=== PATIENT | female | born 1995 | race Hispanic/Latino ===

== ENCOUNTER 2017-11-22 19:00 | Emergency (ER) | payer SELFPAY ==
[2017-11-22] MEDS ORDERED: IPRATROPIUM/ALBUTEROL SULFATE 3 ML SOLUTION IH ONE (19:22)
[2017-11-22] MEDS ORDERED: METHYLPREDNISOLONE SOD SUCC 125MG/2ML VIAL ONE (20:01)
== END 2017-11-22 20:28 | disposition home or self-care (01) ==
LOC: EDH 19:00
DX: F32.9 Major depressive disorder, single episode, unspecified (principal); J45.21 Mild intermittent asthma with (acute) exacerbation; Z72.0 Tobacco use; Z79.899 Other long term (current) drug therapy
CPT/HCPCS: 71046; 81025; 94640; 96372; 99285; J2930

== ENCOUNTER 2019-05-14 00:25 | Emergency (ER) | payer SELFPAY ==
[2019-05-14] MEDS ORDERED: IBUPROFEN 600 MG TABLET ONE (00:57)
[2019-05-14] MEDS ORDERED: AMOXICILLIN 500 MG CAPSULE PO ONE (00:57)
== END 2019-05-14 01:03 | disposition home or self-care (01) ==
LOC: EDH 00:25
DX: K03.81 Cracked tooth (principal); F41.9 Anxiety disorder, unspecified; J45.909 Unspecified asthma, uncomplicated; F32.9 Major depressive disorder, single episode, unspecified
CPT/HCPCS: 81025

== ENCOUNTER 2021-07-06 11:10 | Emergency (ER) | payer OTHER ==
[~2021-07-06] VITALS: Ht 172.7 cm; Wt 77.1 kg
[2021-07-06 11:22] VITALS: BP 105/67
[2021-07-06] MEDS ORDERED: KETOROLAC 60 MG VIAL (30MG/ML) IM ONE (12:00)
[2021-07-06] MEDS ORDERED: IBUP-1552 PO (12:16)
== END 2021-07-06 12:43 | disposition home or self-care (01) ==
LOC: EDH 11:10
DX: S93.492A Sprain of other ligament of left ankle, initial encounter (principal); S93.692A Other sprain of left foot, initial encounter; Z79.899 Other long term (current) drug therapy; W03.XXXA Other fall on same level due to collision with another person, initial encounter; Y93.89 Activity, other specified; Y92.89 Other specified places as the place of occurrence of the external cause; Y99.8 Other external cause status
CPT/HCPCS: 73610; 73630; 96372; 99284; J1885

== ENCOUNTER 2022-07-07 14:06 | Inpatient (IN) | payer OTHER ==
[~2022-07-07] VITALS: Ht 172.7 cm; Wt 66.8 kg
[~2022-07-07 14:06] MED LIST: IBUP-1552 PO
[2022-07-07] MEDS ORDERED: FAMOTIDINE 20MG VIAL IV ONE ×2 (14:49→15:00)
[2022-07-07 14:56] LABS: BASOPHILS % (AUTO) 0.3 % (0.0-5.0); EOSINOPHILS % (AUTO) 0.1 % (0.0-8.0); HEMATOCRIT 44.5 % (36-48); LYMPHOCYTES % (AUTO) 11.9 % (21.0-51.0); MEAN CORPUSCULAR HEMOGLOBIN 26.8 pg (27.0-33.0); MEAN CORPUSCULAR HGB CONC 33.3 g/dL (32.0-36.0); MEAN CORPUSCULAR VOLUME 80.6 fL (79-99); MONOCYTES % (AUTO) 3.3 % (3.0-13.0); NEUTROPHILS % (AUTO) 83.8 % (40.0-77.0); PLATELET COUNT (AUTO) 442 K/uL (130-400); RED BLOOD CELL COUNT(AUTO) 5.52 MIL/uL (4.00-5.50); RED CELL DISTRIBUTION WIDTH 14.2 % (11.0-15.5); WHITE BLOOD COUNT (AUTO) 22.1 K/uL (4.8-10.8)
[2022-07-07] MEDS ORDERED: 0.9%NACL 1000ML 1,000 ML IV ONE (15:00)
[2022-07-07] MEDS ORDERED: METOCLOPRAMIDE 10 MG/2 ML VIAL IVP ONE (15:00)
[2022-07-07] MEDS ORDERED: DiphenhydrAMINE HCL 50 MG/ML VIAL IV ONE (15:00)
[2022-07-07 15:10] LABS: CREATININE 0.8 mg/dL (0.5-1.5); POTASSIUM 3.3 mmol/L (3.5-5.1)
[2022-07-07 15:15] LABS: ALBUMIN 4.9 g/dL (3.5-5.0); TOTAL PROTEIN, SERUM 8.9 g/dL (6.0-8.3)
[2022-07-07 15:30] LABS: APPEARANCE,URINE CLOUDY (CLEAR); BILIRUBIN,URINE NEGATIVE (NEGATIVE); COLOR,URINE YELLOW (YELLOW); GLUCOSE, URINE (UA) NEGATIVE (NEGATIVE); KETONES,URINE 150 mg/dL (NEGATIVE); LEUKOCYTE ESTERASE ,URINE 25 Leu/uL (NEGATIVE); NITRATE,URINE NEGATIVE (NEGATIVE); OCCULT BLOOD,URINE NEGATIVE (NEGATIVE); PROTEIN,URINE 100 mg/dL (NEGATIVE)
[2022-07-07 15:40] LABS: BACTERIA,URINE RARE /HPF (None Seen); HYALINE CASTS, URINE 0-1 /LPF (0-1 /LPF); MUCUS,URINE FEW LPF (None Seen); SQUAMOUS EPITHELIAL CELL,UR FEW /HPF (0-2)
[2022-07-07] MEDS ORDERED: HALOPERIDOL INJ 5 MG/ML VIAL IV SCH (16:00)
[2022-07-07] MEDS ORDERED: POTASSIUM BICARB/CIT AC 25 MEQ TABLET.EFF PO ONE (16:30)
[2022-07-07 16:39] LABS: AMPHET/METH SCREEN,URINE NEGATIVE (NEGATIVE); BARBITURATE SCREEN, URINE NEGATIVE (NEGATIVE); BENZODIAZEPINES SCREEN,URINE NEGATIVE (NEGATIVE); CANNABINOID SCREEN,URINE NEGATIVE (NEGATIVE); COCAINE SCREEN,URINE NEGATIVE (NEGATIVE); PHENCYCLIDINE SCREEN,URINE NEGATIVE (NEGATIVE)
[2022-07-07] MEDS ORDERED: MAG/ALUM/SIMETH 30 ML UDCUP PO ONE (17:00)
[2022-07-07] MEDS ORDERED: LIDOCAINE HCL 2% VISCOUS 15 ML UDCUP PO ONE (17:00)
[2022-07-07 18:49] LABS: BASOPHILS % (AUTO) 0.2 % (0.0-5.0); HEMATOCRIT 31.3 % (36-48); MEAN CORPUSCULAR HEMOGLOBIN 26.9 pg (27.0-33.0); MEAN CORPUSCULAR HGB CONC 32.9 g/dL (32.0-36.0); MEAN CORPUSCULAR VOLUME 81.7 fL (79-99); MONOCYTES % (AUTO) 2.5 % (3.0-13.0); NEUTROPHILS % (AUTO) 92.9 % (40.0-77.0); PLATELET COUNT (AUTO) 258 K/uL (130-400); RED BLOOD CELL COUNT(AUTO) 3.83 MIL/uL (4.00-5.50); RED CELL DISTRIBUTION WIDTH 14.2 % (11.0-15.5); WHITE BLOOD COUNT (AUTO) 19.1 K/uL (4.8-10.8)
[2022-07-07] MEDS ORDERED: MORPHINE 4 MG SYG IVP ONE (19:00)
[2022-07-07] MEDS ORDERED: CEFTRIAXONE 1G VIAL IVP ONE (20:00)
[2022-07-07] MEDS ORDERED: DIATR MEGLU/DIATRIZOATE SODIUM 30 ML BOTTLE ONE (20:19)
[2022-07-07] MEDS ORDERED: ACETAMINOPHEN 325 MG TAB PO PRN (21:30)
[2022-07-07] MEDS ORDERED: MORPHINE 2 MG SYG IV PRN (21:30)
[2022-07-07] MEDS ORDERED: LACTATED RINGERS 1000ML 1,000 ML IV SCH (21:30)
[2022-07-07] MEDS ORDERED: ONDANSETRON 4MG INJ IV PRN (21:30)
[2022-07-07] MEDS ORDERED: MORPHINE 4 MG SYG IV PRN (21:30)
[2022-07-07] MEDS ORDERED: LIDOCAINE HCL-MPF 1% 2ML VIAL IV PRN (22:00)
[2022-07-07] MEDS ORDERED: POTASSIUM CHLORIDE 20MEQ/100ML 100 ML IV PRN (22:00)
[2022-07-07] MEDS ORDERED: ALBUTEROL INHALER 90MCG/INH IH PRN (22:30)
[2022-07-07] MEDS ORDERED: ALBU0.63 IH (22:36)
[2022-07-07 22:53] VITALS: BP 122/71
[2022-07-08 04:30] VITALS: BP 106/68
[2022-07-08] MEDS ORDERED: ZOSYN 3.375GM+NS 50ML 50 ML IV SCH (05:00)
[2022-07-08 05:21] LABS: BASOPHILS % (AUTO) 0.3 % (0.0-5.0); EOSINOPHILS % (AUTO) 0.4 % (0.0-8.0); HEMATOCRIT 36.7 % (36-48); LYMPHOCYTES % (AUTO) 20.2 % (21.0-51.0); MEAN CORPUSCULAR HEMOGLOBIN 27.5 pg (27.0-33.0); MEAN CORPUSCULAR HGB CONC 33.2 g/dL (32.0-36.0); MEAN CORPUSCULAR VOLUME 82.8 fL (79-99); NEUTROPHILS % (AUTO) 72.7 % (40.0-77.0); PLATELET COUNT (AUTO) 331 K/uL (130-400); RED BLOOD CELL COUNT(AUTO) 4.43 MIL/uL (4.00-5.50); RED CELL DISTRIBUTION WIDTH 14.2 % (11.0-15.5); WHITE BLOOD COUNT (AUTO) 19.8 K/uL (4.8-10.8)
[2022-07-08 05:29] LABS: INR 1.05 (0.85-1.15); PROTHROMBIN TIME 11.4 SEC (9.6-11.6)
[2022-07-08 05:30] LABS: PARTIAL THROMBOPLASTIN TIME 25.7 SEC (26.3-35.5)
[2022-07-08 05:36] LABS: CREATININE 0.6 mg/dL (0.5-1.5); MAGNESIUM 1.9 mg/dL (1.80-2.40); PHOSPHORUS 3.3 mg/dL (2.5-4.9); POTASSIUM 4.2 mmol/L (3.5-5.1)
[2022-07-08 08:00] VITALS: BP 113/58
[2022-07-08] MEDS ORDERED: FAMOTIDINE 20MG VIAL IV SCH (09:00)
[2022-07-08] MEDS ORDERED: METOCLOPRAMIDE 10 MG/2 ML VIAL IVP SCH (09:00)
[2022-07-08 12:00] VITALS: BP 118/71
== END 2022-07-08 12:12 | disposition left against medical advice (07) | DRG 200 ==
LOC: EDH 14:06 → EDHIP 14:07 → 3BH 22:32
PROVIDERS: ADMIT Internal Medicine; ATTEND Internal Medicine
DX: J98.2 Interstitial emphysema (principal); N39.0 Urinary tract infection, site not specified; Z20.822 Contact with and (suspected) exposure to COVID-19; E87.6 Hypokalemia; F12.90 Cannabis use, unspecified, uncomplicated; F17.210 Nicotine dependence, cigarettes, uncomplicated; J45.909 Unspecified asthma, uncomplicated
CPT/HCPCS: 36415; 71250; 74176; 80048; 80053; 80305; 81001; 81025; 83690; 83735; 84100; 85025; 85610; 85730; 86850; 86900; 86901; 87040; 87635; 87804; 87880; 93005; C9803; G0378; J0696; J1200; J1630; J2270; J2543; J2765; J3480; J3490; J7120; Q9963

== ENCOUNTER 2022-08-18 10:51 | Emergency (ER) | payer OTHER ==
[~2022-08-18 10:51] MED LIST changes: +ALBU0.63 IH; -IBUP-1552 PO
[2022-08-18] MEDS: 0.9%NACL 1000ML 1,000 ML IV ONE (11:24)
[2022-08-18 11:32] LABS: BASOPHILS % (AUTO) 0.5 % (0.0-5.0); EOSINOPHILS % (AUTO) 0.1 % (0.0-8.0); HEMATOCRIT 44.7 % (36-48); MEAN CORPUSCULAR HEMOGLOBIN 26.9 pg (27.0-33.0); MEAN CORPUSCULAR HGB CONC 34.2 g/dL (32.0-36.0); MEAN CORPUSCULAR VOLUME 78.6 fL (79-99); MONOCYTES % (AUTO) 3.5 % (3.0-13.0); NEUTROPHILS % (AUTO) 80.3 % (40.0-77.0); PLATELET COUNT (AUTO) 465 K/uL (130-400); RED BLOOD CELL COUNT(AUTO) 5.69 MIL/uL (4.00-5.50); RED CELL DISTRIBUTION WIDTH 13.2 % (11.0-15.5); WHITE BLOOD COUNT (AUTO) 28.7 K/uL (4.8-10.8)
[2022-08-18] MEDS: FAMOTIDINE 20MG VIAL IV ONE (11:33)
[2022-08-18] MEDS: HALOPERIDOL INJ 5 MG/ML VIAL IV SCH (11:33)
[2022-08-18 11:40] LABS: CREATININE 0.7 mg/dL (0.5-1.5); POTASSIUM 3.3 mmol/L (3.5-5.1)
[2022-08-18 11:45] LABS: ALBUMIN 4.3 g/dL (3.5-5.0); TOTAL PROTEIN, SERUM 8.1 g/dL (6.0-8.3)
[2022-08-18 11:52] LABS: HCG,QUALITATIVE URINE NEGATIVE (NEGATIVE)
[2022-08-18] MEDS: POTASSIUM BICARB/CIT AC 25 MEQ TABLET.EFF PO ONE (12:05)
[2022-08-18 12:12] LABS: APPEARANCE,URINE CLOUDY (CLEAR); BILIRUBIN,URINE NEGATIVE (NEGATIVE); COLOR,URINE YELLOW (YELLOW); GLUCOSE, URINE (UA) NEGATIVE (NEGATIVE); KETONES,URINE 150 mg/dL (NEGATIVE); LEUKOCYTE ESTERASE ,URINE 25 Leu/uL (NEGATIVE); NITRATE,URINE NEGATIVE (NEGATIVE); OCCULT BLOOD,URINE NEGATIVE (NEGATIVE); PH,URINE 5.5 (5.0-8.0); PROTEIN,URINE 100 mg/dL (NEGATIVE); UROBILINOGEN,URINE 0.2 mg/dL (0.2-1.0)
[2022-08-18 12:20] LABS: BACTERIA,URINE FEW /HPF (None Seen); MUCUS,URINE MANY LPF (None Seen); SQUAMOUS EPITHELIAL CELL,UR MOD /HPF (0-2)
[2022-08-18] MEDS: LIDOCAINE HCL 2% VISCOUS 15 ML UDCUP ONE (12:44)
[2022-08-18] MEDS: MAG/ALUM/SIMETH 30 ML UDCUP PO ONE (12:44)
[2022-08-18] MEDS: LIDOCAINE HCL 2% VISCOUS 15 ML UDCUP PO ONE (12:44)
[2022-08-18] MEDS ORDERED: IOHEXOL 350 MG/ML 100ML INFUS..BTL IV ONE (12:49)
[2022-08-18 15:24] LABS: BASOPHILS % (AUTO) 0.2 % (0.0-5.0); HEMATOCRIT 39.6 % (36-48); LYMPHOCYTES % (AUTO) 3.8 % (21.0-51.0); MEAN CORPUSCULAR HEMOGLOBIN 27.3 pg (27.0-33.0); MEAN CORPUSCULAR HGB CONC 34.3 g/dL (32.0-36.0); MEAN CORPUSCULAR VOLUME 79.4 fL (79-99); MONOCYTES % (AUTO) 2.2 % (3.0-13.0); NEUTROPHILS % (AUTO) 93.2 % (40.0-77.0); PLATELET COUNT (AUTO) 354 K/uL (130-400); RED BLOOD CELL COUNT(AUTO) 4.99 MIL/uL (4.00-5.50); RED CELL DISTRIBUTION WIDTH 13.2 % (11.0-15.5); WHITE BLOOD COUNT (AUTO) 29.9 K/uL (4.8-10.8)
[2022-08-18] MEDS ORDERED: ONDA4TAB10 PO (15:39)
[2022-08-18 15:49] VITALS: BP 122/70
[2022-08-18 16:55] LABS: BAND NEUTROPHILS % (MANUAL) 5 % (0-2); LYMPHOCYTES % (MANUAL) 3 % (22-44); MAN.DIFF COMMENT-IMPRESSION MANUAL DIFFERENTIAL; MONOCYTES % (MANUAL) 3 % (2-9); SEGMENTED NEUTROPHILS % 89 % (40-70)
== END 2022-08-18 16:11 | disposition home or self-care (01) ==
LOC: EDH 10:51
DX: D72.829 Elevated white blood cell count, unspecified (principal); R11.2 Nausea with vomiting, unspecified; F14.10 Cocaine abuse, uncomplicated
CPT/HCPCS: 99285; 74177; 96374; 96361; 76705; 71045; 96375; 80053; 83690; 85025 ×2; 87088; 81001; 81025; 36415; J3490; J1630; Q9967